=== PATIENT | female | born 1935 | race Caucasian/White ===

== ENCOUNTER 2019-07-26 08:38 | Emergency (ER) | payer OTHER, BC ==
[~2019-07-26] VITALS: Ht 151.1 cm; Wt 54.9 kg
[2019-07-26 08:48] VITALS: BP 157/60
--- NOTE | 2019-07-26 08:55 | NUR ---
83 Y/O FEMALE C/O FALL X THIS AM OVER STEPS AND LANDED ON L UPPER ARM AND SHOULDER. DENIES LOC, HITTING HEAD. 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 SKIN IS INTACT. ERMD MADE AWARE OF STATUS. SIDE RAILSX1. DAUGHTER AT BEDSIDE PMH- ARTHRITIS, HTN, ANXIETY, MULTIPLE PAST SURGERIES RX: ZOLOFT; BLOOD PRESSURE MEDICATIONS
--- NOTE | 2019-07-26 08:55 | NUR ---
PT AMBULATED TO ED 8.
--- NOTE | 2019-07-26 09:08 | NUR ---
PT GOING TO RAD VIA WHEELCHAIR
--- NOTE | 2019-07-26 09:40 | NUR ---
DR. BARRERA EVALUATING PATIENT AT BEDSIDE.
--- NOTE | 2019-07-26 10:26 | NUR ---
PATIENT IS IN NO DISTRESS AT THIS TIME. DAUGHTER AT BEDSIDE. WILL CONTINUE TO MONITOR.
[2019-07-26] MEDS ORDERED: KETOROLAC 60 MG/2 ML VIAL IM ONE (10:40)
[2019-07-26 11:09] VITALS: BP 119/78
== END 2019-07-26 11:09 | disposition home or self-care (01) ==
LOC: MED 08:38
DX: S42.295A Other nondisplaced fracture of upper end of left humerus, initial encounter for closed fracture (principal); I10 Essential (primary) hypertension; F41.9 Anxiety disorder, unspecified; W10.8XXA Fall (on) (from) other stairs and steps, initial encounter; Y93.89 Activity, other specified; Y92.89 Other specified places as the place of occurrence of the external cause; Y99.8 Other external cause status
CPT/HCPCS: 73030; 96372; 99283; J1885; Q0092